=== PATIENT | female | born 1995 | race Hispanic/Latino ===

== ENCOUNTER 2022-10-22 05:45 | Day surgery (SDC) | payer OTHER ==
[2022-10-22 06:10] VITALS: BMI 16.9
[2022-10-22] MEDS ORDERED: Dextrose 5%-Lactated Ringers 1,000 ML IV SCH (07:00)
== END 2022-10-22 10:13 | disposition home health service (06) ==
LOC: CSHLD/OP 05:45
PROVIDERS: ATTEND Obstetrics & Gynecology
DX: O26.892 Other specified pregnancy related conditions, second trimester (principal); R10.2 Pelvic and perineal pain; Z87.51 Personal history of pre-term labor; Z3A.23 23 weeks gestation of pregnancy
CPT/HCPCS: 76815

== ENCOUNTER 2023-01-07 08:45 | Day surgery (SDC) | payer OTHER ==
[2023-01-07] MEDS ORDERED: Acetaminophen 500 MG TAB ONE (09:07)
[2023-01-07] MEDS ORDERED: Acetaminophen 500 MG TAB PO SCH (09:15)
[2023-01-07] MEDS ORDERED: Iron Sucrose Complex 500 MG in Sodium Chloride 0.9% 250 ML 250 ML IVPB SCH (09:45)
== END 2023-01-07 14:30 | disposition home or self-care (01) ==
LOC: CSHSDC/OP 08:45
PROVIDERS: ATTEND Family Medicine
DX: O99.019 Anemia complicating pregnancy, unspecified trimester (principal); D64.9 Anemia, unspecified
CPT/HCPCS: J1756; J7050

== ENCOUNTER 2023-01-20 16:04 | Observation (INO) | payer OTHER ==
[2023-01-20] MEDS ORDERED: hydrALAZINE 20 MG/ML VIAL SLOW IVP PRN ×2 (17:48→23:53)
[2023-01-20] MEDS ORDERED: Sodium Chloride 0.9% 1,000 ML IV SCH (18:00)
[2023-01-20] MEDS ORDERED: metroNIDAZOLE 500 MG TAB PO SCH (18:45)
[2023-01-20] MEDS ORDERED: Methylergonovine 0.2 MG/ML VIAL IM PRN (23:53)
[2023-01-20] MEDS ORDERED: Promethazine HCl 25 MG/ML VIAL IM PRN (23:53)
[2023-01-20] MEDS ORDERED: Carboprost 250 MCG/ML AMP IM PRN (23:53)
[2023-01-20] MEDS ORDERED: Misoprostol 200 MCG TAB PR PRN (23:53)
[2023-01-20] MEDS ORDERED: Diphenoxylate HCl/Atropine Tablet PO PRN (23:53)
[2023-01-20] MEDS ORDERED: Ondansetron PF 4 MG/2 ML Vial IVP PRN (23:53)
[2023-01-20] MEDS ORDERED: Tranexamic Acid 1,000 MG/10 ML VIAL IVP PRN (23:53)
[2023-01-21] MEDS ORDERED: NS w/ Oxytocin 30 units 500 ML IV SCH (00:30)
[2023-01-21 06:39] VITALS: BMI 22.5
[2023-01-21] MEDS ORDERED: metroNIDAZOLE 500 MG TAB PO SCH (09:00)
== END 2023-01-21 10:55 | disposition home or self-care (01) ==
LOC: CSHLD/OP 16:04 → CSHLD 23:53 → UNDOADMOB 01-21 00:09
PROVIDERS: ADMIT Family Medicine; ATTEND Family Medicine
DX: O47.03 False labor before 37 completed weeks of gestation, third trimester (principal); Z79.899 Other long term (current) drug therapy; O09.213 Supervision of pregnancy with history of pre-term labor, third trimester; O23.593 Infection of other part of genital tract in pregnancy, third trimester; O99.013 Anemia complicating pregnancy, third trimester; D50.9 Iron deficiency anemia, unspecified; B96.89 Other specified bacterial agents as the cause of diseases classified elsewhere; Z87.59 Personal history of other complications of pregnancy, childbirth and the puerperium; Z3A.36 36 weeks gestation of pregnancy
CPT/HCPCS: 99285; G0378

== ENCOUNTER 2023-01-24 11:24 | Day surgery (SDC) | payer OTHER ==
[2023-01-24] MEDS ORDERED: hydrALAZINE 20 MG/ML VIAL SLOW IVP PRN (12:26)
== END 2023-01-24 13:20 | disposition left against medical advice (07) ==
LOC: CSHLD/OP 11:24
PROVIDERS: ATTEND Family Medicine
DX: O36.8130 Decreased fetal movements, third trimester, not applicable or unspecified (principal); O99.013 Anemia complicating pregnancy, third trimester; D50.9 Iron deficiency anemia, unspecified; Z87.59 Personal history of other complications of pregnancy, childbirth and the puerperium; Z79.899 Other long term (current) drug therapy; Z3A.37 37 weeks gestation of pregnancy
CPT/HCPCS: 76819

== ENCOUNTER 2023-01-28 02:30 | Inpatient (IN) | payer OTHER ==
[2023-01-28] MEDS ORDERED: Ondansetron PF 4 MG/2 ML Vial IVP PRN (03:06)
[2023-01-28] MEDS ORDERED: Promethazine HCl 25 MG/ML VIAL IM PRN (03:06)
[2023-01-28] MEDS ORDERED: Diphenoxylate HCl/Atropine Tablet PO PRN (03:06)
[2023-01-28] MEDS ORDERED: hydrALAZINE 20 MG/ML VIAL SLOW IVP PRN ×2 (03:06→03:10)
[2023-01-28] MEDS ORDERED: Misoprostol 200 MCG TAB PR PRN (03:06)
[2023-01-28] MEDS ORDERED: Acetaminophen 500 MG TAB PO PRN (03:06)
[2023-01-28] MEDS ORDERED: Carboprost 250 MCG/ML AMP IM PRN (03:06)
[2023-01-28] MEDS ORDERED: Methylergonovine 0.2 MG/ML VIAL IM PRN (03:06)
[2023-01-28] MEDS ORDERED: Milk Of Magnesia 30 ML UDCUP PO PRN (03:10)
[2023-01-28] MEDS ORDERED: Bisacodyl 10 MG SUPP PR PRN (03:10)
[2023-01-28] MEDS ORDERED: Benzocaine-Menthol 82.5 ML CAN TOP PRN (03:10)
[2023-01-28] MEDS ORDERED: HYDROcodone/Acetaminophen 5/325 mg Tablet PO PRN (03:10)
[2023-01-28] MEDS ORDERED: Boostrix 0.5 ML (Tdap) VIAL (>/=7 yrs of age) IM ONE (03:10)
[2023-01-28] MEDS ORDERED: NS w/ Oxytocin 30 units 500 ML IV SCH (03:15)
[2023-01-28 03:19] LABS: Hemoglobin 10.9 g/dL (12.0-15.5); Mean Corpuscular HGB CONC 30.7 g/dL (32.0-36.0); Mean Corpuscular Hemoglobin 25.3 pg (27.0-33.0); Mean Corpuscular Volume 82.6 fl (81.6-98.3); Mean Platelet Volume 9.9 fl (7.4-10.4); Platelet Count 181 10x3/uL (150-450); RBC Distribution Width 20.6 % (11.5-14.5); White Blood Cell (WBC) Count 6.6 10x3/uL (3.5-10.5)
[2023-01-28 03:47] LABS: Syphilis Antibody Nonreactive (Nonreactive); Syphilis Antibody Index 0.05 S/CO (<1.00 Non-Reactive)
[2023-01-28 03:48] LABS: HBSAg Index 0.12 S/CO (0-0.99); Hep B Surf Ag Non-Reactive S/CO (NonReactive)
[2023-01-28] MEDS: Ferrous Sulfate 325 MG TAB PO SCH ×2 (14:21→17:16)
[2023-01-28] MEDS: Lactated Ringer's 1,000 ML IV SCH (14:21)
[2023-01-28] MEDS: Docusate 100 MG CAP PO SCH ×2 (14:22→21:29)
[2023-01-28] MEDS: Ibuprofen 800 MG TAB PO SCH ×2 (14:37→21:29)
[2023-01-29] MEDS: Ibuprofen 800 MG TAB PO SCH (06:18)
[2023-01-29] MEDS: Docusate 100 MG CAP PO SCH ×2 (08:27→13:41)
[2023-01-29] MEDS: Ferrous Sulfate 325 MG TAB PO SCH (08:30)
[2023-01-29 09:45] VITALS: BP 102/58; TEMP 97.9
== END 2023-01-29 11:45 | disposition home or self-care (01) | DRG 807 ==
LOC: CSHERS 02:30 → CSHLD 03:27 → CSHPP 09:45
PROVIDERS: ADMIT Family Medicine; ATTEND Family Medicine
PROC: 10E0XZZ Delivery of Products of Conception, External Approach (ICD-10-PCS; principal; 2023-01-28)
DX: O62.3 Precipitate labor (principal); Z37.0 Single live birth; Z3A.37 37 weeks gestation of pregnancy; O90.81 Anemia of the puerperium; D50.9 Iron deficiency anemia, unspecified; Z79.899 Other long term (current) drug therapy
CPT/HCPCS: 85027; 86780; 86850; 86900; 86901; 87340; 99284